=== PATIENT | male | born 2000 | race Caucasian/White ===

== ENCOUNTER 2021-02-25 15:15 | Emergency (ER) | payer OTHER ==
[2021-02-25 15:21] VITALS: BP 121/79; PULSE 101; RESP 20; TEMP 97.8
--- NOTE | 2021-02-25 15:51 | ED ---
General Adult HPI - General Chief complaint: Skin/Abscess/Foreign Body Stated complaint: Abscess on Chest Time Seen by Provider: 02/25/21 15:38 Source: patient, RN notes reviewed Mode of arrival: ambulatory Limitations: no limitations - History of Present Illness Initial comments: 20-year-old well-appearing white male presents to the emergency room with complaints of having a lesion to his chest for the past 2 years. Patient states that his mother tried to poke it to drain it thinking it was a pimple and got no results. He states that it is tender intermittently. He denies any other medical problems. He does vape, denies cigarette use or alcohol on a daily basis. He denies any fevers, nausea vomiting or diarrhea. -: year(s) (2) Location: chest Radiation: non-radiation Severity scale (1-10): 6 Quality: aching, other (tender) Consistency: intermittent Improves with: none Associated Symptoms: denies other symptoms Treatments Prior to Arrival: other (attempted drainage) - Related Data Allergies Allergy/AdvReac Type Severity Reaction Status Date / Time Penicillins Allergy Unknown Verified 02/25/21 15:17 Childhood Review of Systems ROS Statement: Those systems with pertinent positive or pertinent negative responses have been documented in the HPI. ROS Other: All systems not noted in ROS Statement are negative. Past Medical History Past Medical History: No Reported History History of Any Multi-Drug Resistant Organisms: None Reported Past Surgical History: Tonsillectomy Past Psychological History: Bipolar Smoking Status: Vaper Past Alcohol Use History: Occasional Past Drug Use History: Marijuana General Exam Limitations: no limitations General appearance: alert, in no apparent distress Head exam: Present: atraumatic, normocephalic, normal inspection Eye exam: Present: normal appearance, PERRL, EOMI. Absent: scleral icterus, conjunctival injection, periorbital swelling ENT exam: Present: normal exam, normal oropharynx, mucous membranes moist Neck exam: Present: normal inspection, full ROM. Absent: tenderness, meningis mus, lymphadenopathy, thyromegaly Respiratory exam: Present: wheezes (Inspiratory and expiratory). Absent: chest wall tenderness, accessory muscle use Cardiovascular Exam: Present: tachycardia. Absent: JVD GI/Abdominal exam: Present: soft, normal bowel sounds. Absent: distended, tenderness, guarding, rebound, rigid Back exam: Present: full ROM. Absent: tenderness, CVA tenderness (R), CVA tenderness (L) Neurological exam: Present: alert, oriented X3, CN II-XII intact Psychiatric exam: Present: normal affect, normal mood Skin exam: Present: warm, dry, intact, normal color, other (Approximately 2 cm round lesion suprasternal appears to be a lipoma). Absent: rash Course Vital Signs 02/25/21 15:18 Temperature 97.8 F Pulse Rate 101 H Respiratory 20 Rate Blood Pressure 121/79 O2 Sat by Pulse 95 Oximetry Medical Decision Making - Medical Decision Making This is a well-appearing 20-year-old male with no medical history. He states that he has had this lesion in his chest for the past 2 years. He has tried to drain it with no results. There is no surrounding erythema. He has had no fevers or systemic symptoms. Chest x-ray is clear. This is likely a telangiectatic lipoma as it is soft and mobile. He will be referred to dermatology and his primary care doctor for continuation of care. Case discussed with Dr. Barney. Disposition Clinical Impression: Lipoma of anterior chest wall Disposition: HOME SELF-CARE Condition: Good Additional Instructions: Follow-up with dermatology and her primary care doctor for continuation of care. Return to the emergency room with any new or worsening symptoms including fevers or increased pain. Stop vaping. Is patient prescribed a controlled substance at d/c from ED?: No Referrals: Mayda Silva MD [Primary Care Provider] - 1-2 days Charlene Hdez MD [STAFF PHYSICIAN] - 1-2 days Time of Disposition: 16:22
--- NOTE | 2021-02-25 16:15 | XR ---
EXAMINATION TYPE: XR chest 2V DATE OF EXAM: 02/25/2021 COMPARISON: NONE HISTORY: Chest pain. TECHNIQUE: Frontal and lateral views of the chest are obtained. FINDINGS: There is no focal air space opacity, pleural effusion, or pneumothorax seen. The cardiac silhouette size is within normal limits. The osseous structures are intact. IMPRESSION: No acute process.
== END 2021-02-25 16:31 | disposition home or self-care (01) ==
LOC: EC 15:15
DX: D17.1 Benign lipomatous neoplasm of skin and subcutaneous tissue of trunk (principal); F17.290 Nicotine dependence, other tobacco product, uncomplicated; Z88.0 Allergy status to penicillin
CPT/HCPCS: 71046; 99283

== ENCOUNTER 2021-10-15 07:22 | Day surgery (SDC) | payer OTHER ==
[2021-10-13 13:54] VITALS: BMI 23.6
[~2021-10-15 07:22] MED LIST: DEXAMETHASONE SOD PHOSPHATE 4 MG/ML 1 ML VIAL IV ONE; HYDROmorphone 0.5 MG/0.5 ML SYRINGE IVP PRN; LACTATED RINGERS 1,000 ML IV SCH; LIDOCAINE 1% (10MG/ML) FOR IV START INTRADERMA PRN; MIDAZOLAM 2 MG/2 ML VIAL IV PRN; ONDANSETRON 4 MG/2 ML VIAL IVP ONE
[2021-10-15] MEDS ORDERED: FAMOTIDINE 20 MG/2 ML VIAL IV ONE (08:15)
[2021-10-15 08:20] VITALS: RESP 16
[2021-10-15 08:27] LABS: ALT 22 U/L (4-49); AST 26 U/L (17-59); African American GFR (CKD) >90 (>60 ml/min/1.73 sqM); Albumin 4.8 g/dL (3.5-5.0); Alkaline Phosphatase 69 U/L (38-126); Anion Gap 7 mmol/L; Blood Urea Nitrogen 8 mg/dL (9-20); Calcium 9.3 mg/dL (8.4-10.2); Carbon Dioxide 32 mmol/L (22-30); Chloride 102 mmol/L (98-107); Glucose 91 mg/dL (74-99); Non-African American GFR(CKD) >90 (>60 ml/min/1.73 sqM); Potassium 3.3 mmol/L (3.5-5.1); Sodium 141 mmol/L (137-145); Total Bilirubin 0.6 mg/dL (0.2-1.3); Total Protein 7.9 g/dL (6.3-8.2)
[2021-10-15 08:36] LABS: Basophils # (A) 0.1 k/uL (0-0.2); Basophils % (A) 1 %; Eosinophils # (A) 0.1 k/uL (0-0.7); Eosinophils % (A) 2 %; HCT 46.2 % (39.0-53.0); HGB 15.8 gm/dL (13.0-17.5); Lymphocytes # (A) 2.7 k/uL (1.0-4.8); Lymphocytes % (A) 40 %; MCH 32.3 pg (25.0-35.0); MCHC 34.2 g/dL (31.0-37.0); MCV 94.6 fL (80.0-100.0); Mean Platelet Volume 6.7; Monocytes # (A) 0.4 k/uL (0-1.0); Monocytes % (A) 7 %; Neutrophils # (A) 3.4 k/uL (1.3-7.7); Neutrophils % (A) 50 %; Platelet Count 301 k/uL (150-450); RBC 4.88 m/uL (4.30-5.90); WBC 6.8 k/uL (3.8-10.6)
[2021-10-15] MEDS ORDERED: KETAMINE 10 MG/ML 20 ML VIAL ONE (08:45)
[2021-10-15] MEDS ORDERED: fentaNYL (PF) 50 MCG/ML 2 ML AMP ONE (08:45)
[2021-10-15] MEDS ORDERED: PROPOFOL 10 MG/ML 20 ML VIAL IV ONE (08:45)
[2021-10-15] MEDS ORDERED: MIDAZOLAM 2 MG/2 ML VIAL ONE (08:45)
[2021-10-15] MEDS ORDERED: LIDOCAINE 1%-EPI 1:100,000 20 ML VIAL SQ ONE (09:02)
--- NOTE | 2021-10-15 09:48 | P.OP ---
Date of Procedure: 10/15/21 Preoperative Diagnosis: Skin lesion sternal notch Postoperative Diagnosis: Same Procedure(s) Performed: Excision of skin lesions sternal notch with primary flap closure Implants: 10-Niuean drain Anesthesia: MAC Surgeon: [employer] Programming Lead #1: Chad Granger Estimated Blood Loss (ml): 10 IV fluids (ml): 200 Urine output (ml): 0 Pathology: none sent (Skin lesion sternal notch) Condition: stable Disposition: PACU Indications for Procedure: 20-year-old male referred by general surgery for excision of skin lesion overlying sternal notch area lesion measures 3.[address] confirmed this was a skin lesion consistent with epidermoid cyst. Operative Findings: 3.5 x 3.5 cm lesion involving the skin overlying the sternal notch. Excised in its entirety without entering the lesion. Description of Procedure: Patient was brought to the operating room. IV sedation was administered. The anterior neck and upper chest were sterilely prepped and draped. Incisions were planned utilizing the skin lines in the skin folds at the base of the neck anteriorly and extending approximately 3 cm on either side of the 3-1/2 cm mass and incorporating just the mass in a cephalad caudad direction. One percent lidocaine local anesthesia was administered. Incision was performed and carried down through skin into the subcutaneous tissue. Dissection in the subcutaneous plane was carried out beneath the mass and the lesion was excised and sent to pathology. Electrocautery was used for hemostasis. Advancement flaps superiorl y and inferiorly were generated in order to hold the skin together easily. Subcutaneous tissues were reapproximated with 2-0 Vicryl. A 10 mm round Jose-Cabrales drain was left inferior to the closure in the advancement flap region brought out through separate stab incision and secured with a 3-0 nylon suture. Skin was reapproximated with 3-0 Vicryl subcuticular stitch. Skin glue dressing was applied over the incision and a drain sponge was placed over the drain. Patient was transferred to recovery in stable condition. All Plan - Discharge Summary New Discharge Prescriptions: No Action No Known Home Medications Discharge Medication List No Known Home Medications 10/13/21 [History]
[2021-10-15 09:49] VITALS: TEMP 97.7
[2021-10-15] MEDS ORDERED: ACETAMINOPHEN TAB 500 MG TAB PO ONE (11:00)
[2021-10-15] MEDS ORDERED: ACETAMINOPHEN TAB 500 MG TAB ONE (11:05)
[2021-10-15] MEDS ORDERED: ACETAMINOPHEN TAB 325 MG TAB PO PRN (11:13)
[2021-10-15] MEDS ORDERED: ACETAMINOPHEN TAB 500 MG TAB PO PRN (11:15)
[2021-10-15 11:34] VITALS: BP 111/70; PULSE 66
== END 2021-10-15 11:41 | disposition home or self-care (01) ==
LOC: OR 07:22
PROVIDERS: ATTEND Thoracic Surgery (Cardiothoracic Vascular Surgery)
DX: L72.0 Epidermal cyst (principal); F12.90 Cannabis use, unspecified, uncomplicated; Z79.899 Other long term (current) drug therapy; Z88.0 Allergy status to penicillin; Z20.822 Contact with and (suspected) exposure to COVID-19
CPT/HCPCS: 14040; 88304; 80053; 85025; 87635; J2250; J1100; J0690; J2405; J3010; J2704

== ENCOUNTER 2024-03-17 02:20 | Emergency (ER) | payer OTHER ==
[2024-03-17] MEDS: ONDANSETRON 4 MG/2 ML VIAL IVP STA (02:53)
[2024-03-17] MEDS: SODIUM CHLORIDE 0.9% 1,000 ML IV ONE (02:53)
[2024-03-17 03:09] LABS: Basophils # (A) 0.1 k/uL (0-0.2); Basophils % (A) 1 %; Eosinophils # (A) 0.2 k/uL (0-0.7); Eosinophils % (A) 2 %; HCT 53.5 % (39.0-53.0); HGB 17.3 gm/dL (13.0-17.5); Lymphocytes # (A) 7.1 k/uL (1.0-4.8); Lymphocytes % (A) 55 %; MCH 32.3 pg (25.0-35.0); MCHC 32.4 g/dL (31.0-37.0); MCV 99.9 fL (80.0-100.0); Mean Platelet Volume 6.9; Monocytes # (A) 0.7 k/uL (0-1.0); Monocytes % (A) 6 %; Neutrophils # (A) 4.4 k/uL (1.3-7.7); Neutrophils % (A) 34 %; Platelet Count 353 k/uL (150-450); RBC 5.36 m/uL (4.30-5.90); WBC 12.9 k/uL (3.8-10.6)
[2024-03-17 03:23] LABS: Partial Thromboplastin Time 23.5 sec (22.0-30.0); Prothrombin Time 10.8 sec (10.0-12.5)
[2024-03-17 03:41] LABS: ALT 33 U/L (4-49); AST 40 U/L (17-59); African American GFR (CKD) 80 (>60 ml/min/1.73 sqM); Albumin 5.7 g/dL (3.5-5.0); Alkaline Phosphatase 79 U/L (38-126); Blood Urea Nitrogen 8 mg/dL (9-20); Calcium 9.9 mg/dL (8.4-10.2); Chloride 108 mmol/L (98-107); Glucose 181 mg/dL (74-99); Non-African American GFR(CKD) 69 (>60 ml/min/1.73 sqM); Potassium 3.9 mmol/L (3.5-5.1); Sodium 145 mmol/L (137-145); Total Bilirubin 0.7 mg/dL (0.2-1.3); Total Protein 8.9 g/dL (6.3-8.2)
[2024-03-17 03:42] LABS: Poikilocytosis (M) Present
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
[2024-03-17 04:17] LABS: Carbon Dioxide <5 mmol/L (22-30)
[2024-03-17 04:18] LABS: Alcohol 145 mg/dL
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
[2024-03-17 05:04] VITALS: BP 114/76; PULSE 94; RESP 18; TEMP 97.8
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
== END 2024-03-17 05:04 | disposition home or self-care (01) ==
LOC: EC 02:20
CPT/HCPCS: 36415; 70450; 71045; 72125; 72170; 80053; 80320; 85025; 85610; 85730; 96361; 96374; 99285

== ENCOUNTER → 2024-03-20 | Outpatient (CLI) | payer OTHER ==
--- NOTE | 2024-03-20 13:00 | XR ---
EXAMINATION TYPE: XR hand complete 3 views LT DATE OF EXAM: 03/20/2024 Comparison: None Clinical History: 23-year-old male left hand pain, S69.92XS finger injury L Findings: No acute fracture, subluxation, or dislocation. No periostitis or osteolysis. No marginal erosions. J oint spaces throughout appear maintained. Impression: No acute osseous abnormality seen. [facility], , 03/20/2024 12:58 PM
== END | disposition home or self-care (01) ==
LOC: RADXRMAIN 11:19
PROVIDERS: ATTEND Internal Medicine
DX: S69.92XS Unspecified injury of left wrist, hand and finger(s), sequela (principal)